=== PATIENT | female | born 1960 | race Caucasian/White ===

== ENCOUNTER 2017-04-04 07:25 | Emergency (ER) | payer MEDICARE ==
[2017-04-04 07:34] VITALS: RESP 18
[2017-04-04] MEDS ORDERED: Sodium Chloride 0.9% 1,000 ML IV ONE (08:01)
[2017-04-04 08:21] LABS: BASO # 0.1 K/uL (0.0-0.2); BASO % 0.5 % (0.0-2.0); EOS # 0.1 K/uL (0.0-0.7); EOS % 1.1 % (0.0-4.0); HEMATOCRIT 38.4 % (34.0-47.0); LYMPH # 2.3 K/uL (1.0-4.3); LYMPH % 21.7 % (20.0-40.0); MEAN CELL VOLUME 82.4 fL (81.0-99.0); MEAN CORPUSCULAR HEMOGLOBIN 26.9 pg (27.0-31.0); MEAN CORPUSCULAR HGB CONC 32.6 g/dL (33.0-37.0); MEAN PLATELET VOLUME 7.2 fL (7.2-11.7); MONO # 0.8 K/uL (0.0-0.8); MONO % 7.6 % (0.0-10.0); WHITE BLOOD COUNT 10.4 K/uL (4.8-10.8)
[2017-04-04] MEDS ORDERED: Sodium Chloride 0.9% 1,000 ML ONE (08:22)
[2017-04-04 08:31] LABS: CHLORIDE 102 mmol/L (98-107); POTASSIUM 4.7 mmol/L (3.6-5.2); SODIUM 136 mmol/L (132-148)
[2017-04-04 08:33] LABS: BILIRUBIN,TOTAL 0.8 mg/dL (0.2-1.3); GFR AFRICAN-AMERICAN > 60
[2017-04-04 08:34] LABS: ALB/GLOB RATIO 1.1 (1.0-2.1); ALKALINE PHOSPHATASE 66 U/L (38-126); ALT/SGPT 25 U/L (9-52); AST/SGOT 18 U/L (14-36); BLOOD UREA NITROGEN 13 mg/dL (7-17); CARBON DIOXIDE 24 mmol/L (22-30); GLUCOSE,RANDOM 102 mg/dL (65-105); TOTAL PROTEIN 7.2 g/dL (6.3-8.3)
[2017-04-04 08:35] LABS: CALCIUM 9.2 mg/dl (8.6-10.4)
--- NOTE | 2017-04-04 08:53 | C.PDOC ---
History Of Present Illness 56 year old female with a Hx of chronic back pain who presents to the ER with a complaint of back pain that has worsened over the past few days. Patient states she has been going to physical therapy, applying anti-inflammatory cream, and taking Tylenol with no relief to pain. Denies weakness, numbness, incontinence, dysuria, or hematuria. Time Seen by Provider: 04/04/17 07:32 Chief Complaint (Nursing): Back Pain History Per: Patient History/Exam Limitations: no limitations Onset/Duration Of Symptoms: Days Current Symptoms Are (Timing): Still Present Quality Of Discomfort: Unable To Describe Previous Symptoms: Back Pain, Chronic Pain Associated Symptoms: None Recent travel outside of the [place]: No Past Medical History Reviewed: Historical Data, Nursing Documentation, Vital Signs Vital Signs: Last Vital Signs Temp 98 F 04/04/17 09:25 Pulse 65 04/04/17 09:25 Resp 18 04/04/17 09:25 BP 113/74 04/04/17 09:25 Pulse Ox 98 04/04/17 09:41 - Medical History PMH: HTN, Hypercholesterolemia Surgical History: No Surg Hx Family History: States: Unknown Family Hx - Social History Hx Alcohol Use: No Hx Substance Use: No Review Of Systems Genitourinary: Negative for: Dysuria, Incontinence, Hematuria Musculoskeletal: Positive for: Back Pain Neurological: Negative for: Weakness, Numbness Physical Exam - Physical Exam Appears: Non-toxic, Other (Nauseous) Skin: Normal Color, Warm, Dry Head: Atraumatic, Normacephalic Oral Mucosa: Moist Back: No CVA Tenderness, No Vertebral Tenderness, Paraspinal Tenderness (Right sided) Extremity: Normal ROM (x4), No Tenderness Neurological/Psych: Oriented x3, Normal Speech, Normal Cognition, Normal Motor, Normal Sensation Gait: Steady ED Course And Treatment - Laboratory Results Result Diagrams: 04/04/17 08:18 04/04/17 08:18 Lab Interpretation: Normal O2 Sat by Pulse Oximetry: 98 (Room air) Pulse Ox Interpretation: Normal - Other Rad No standard instances X-Ray: Interpreted by Me Interpretation: LS spine no fx Progress Note: Lumbar spine x-ray and urinalysis ordered. Toradol, zofran, and IV fluids administered. Treated with flexeril 10 mg PO. On re-evaluation feeling better, abdomen soft, ambulating with steady gait Reassessment Condition: Improved Disposition Counseled Patient/Family Regarding: Studies Performed, Diagnosis, Need For Followup, Rx Given - Disposition Referrals: Zen Osullivan [Staff Provider] - Disposition: HOME/ ROUTINE Disposition Time: 10:00 Condition: IMPROVED Additional Instructions: Follow up with PMD Return to ED if any increase symptoms Prescriptions: Cyclobenzaprine [Cyclobenzaprine HCl] 10 mg PO BID PRN #10 tab PRN Reason: Pain, Moderate (4-7) Instructions: Back Pain (ED) Forms: [employer] (Malay) - POA Present On Arrival: None - Clinical Impression Clinical Impression: Low back pain - Scribe Statement The provider has reviewed the documentation as recorded by the Scribe Vargas Alba All medical record entries made by the Armandoibdionisio were at my direction and personally dictated by me. I have reviewed the chart and agree that the record accurately reflects my personal performance of the history, physical exam, medical decision making, and the department course for this patient. I have also personally directed, reviewed, and agree with the discharge instructions and disposition.
[2017-04-04 08:57] LABS: RBC URINE 4 /hpf (0-3); URINE BACTERIA OCC (<OCC); URINE BILIRUBIN NEGATIVE (NEGATIVE); URINE BLOOD 1+ (NEGATIVE); URINE COLOR Yellow (YELLOW); URINE GLUCOSE (UA) NORMAL (Normal); URINE KETONE NEGATIVE (NEGATIVE); URINE LEUKOCYTE ESTERASE NEG Leu/uL (Negative); URINE PROTEIN NEGATIVE (NEGATIVE); URINE UROBILINOGEN NORMAL mg/dL (0.2-1.0); WBC URINE 1 /hpf (0-5)
[2017-04-04 09:26] VITALS: BP 113/74; PULSE 65; TEMP 98
[2017-04-04 09:41] VITALS: O2SAT 98
--- NOTE | 2017-04-04 18:02 | RAD ---
PROCEDURE: Radiographs of the Lumbar Spine. HISTORY: pain No antecedent history of trauma. COMPARISON: No prior. FINDINGS: BONES: Normal alignment. No listhesis. No fracture. DISC SPACES: Unremarkable. Non marginal osteophyte formation lower thoracic upper lumbar region. OTHER FINDINGS: None. IMPRESSION: No significant or acute findings to account for/ related to the clinical presentation.
== END 2017-04-04 09:55 | disposition home or self-care (01) ==
LOC: C.ER 07:25
DX: M54.5 Low back pain (principal)
CPT/HCPCS: 72100; 80053; 81001; 85025; 96374; 96375; 99285; J1885; J2405; J7040